=== PATIENT | male | born 1940 | race Caucasian/White ===

== ENCOUNTER 2020-05-31 08:25 | Inpatient (IN) | payer MEDICARE, OTHER, SELFPAY ==
[2020-05-31] VITALS (23 sets, daily range): BP systolic 107–172; BP diastolic 54–85; PULSE 59–94; RESP 13–18; TEMP 36.2–37.2; O2SAT 97–100; BMI 29.5
--- NOTE | 2020-05-31 08:28 | ECG_ITS ---
Measurements Intervals [place] Rate: 59 P: 46 GA: 219 QRS: -1 QRSD: 102 T: 71 QT: 421 QTc: 418 Interpretive Statements SINUS BRADYCARDIA WITH MARKED SINUS ARRHYTHMIA WITH FIRST DEGREE AV BLOCK ST ELEVATION IN ANT/INF LEADS- COSIDER ACUTE INJURY RECIPROCAL HIGH LATERAL ST DEPRESSION ABNORMAL ECG Electronically Signed On 05-31-2020 9:00:59 CDT by Saud Paulino D.O.
--- NOTE | 2020-05-31 08:31 | ED.CHESTPAIN ---
HPI - Chest Pain General Chief Complaint: Chest Pain Stated Complaint: STEMI Source: RN notes reviewed History of Present Illness HPI narrative: Patient presents emergency department from home for chest pain. Patient states that he was working outside today when he developed midsternal chest pain with radiation to his bilateral arms. The pain is described as a pressure. The patient states he does have a previous cardiac history with 3 stents placed last stent was placed in 2009. States he was seen by his print finishing worker in [facility] 3 days ago and had been on aspirin and Plavix and Plavix was stopped at that time. Patient states he was feeling fine prior to going out to work in the yard. He denies any fevers or chills nausea vomiting or any other symptoms. Patient did take 325 mg of aspirin this morning Related Data Home Medications Medication Instructions Recorded Confirmed clopidogrel 10/28/19 difluprednate [Durezol] 10/28/19 ezetimibe mg 10/28/19 fluticasone propionate INTRANASAL 10/28/19 isosorbide mononitrate mg PO 10/28/19 losartan 10/28/19 nitroglycerin mg 10/28/19 omeprazole 10/28/19 pantoprazole PO 10/28/19 simvastatin mg 10/28/19 tamsulosin mg PO 10/28/19 Allergies Allergy/AdvReac Type Severity Reaction Status Date / Time iodine Allergy Mild Rash Verified 10/28/19 10:47 Penicillins Allergy Unknown Rash Verified 10/28/19 10:47 Review of Systems Review of Systems: Narrative: Gen.: Denies fevers or chills ENT: Denies congestion Respiratory: Denies shortness of breath or cough CV: See HPI GI: Denies abdominal pain nausea, emesis or diarrhea Musculoskeletal: Denies back pain or muscle pain Neuro: Denies numbness, tingling, weakness or focal weakness Skin: Denies rash Except as documented, all other systems reviewed and negative [facility] Past Medical History Medical History (Updated 05/31/20 @ 08:37 by Jarod Day DO) Coronary artery disease Hypertension Social History Social History (Updated 05/31/20 @ 08:35 by Jarod Day DO) Smoking status: Never smoker Exam Narrative: Exam Narrative: APPEARANCE: No acute distress, nontoxic, resting in bed EYES: EOMI HEENT: Normocephalic, atraumatic, OMM RESPIRATORY: No respiratory distress Clear to auscultation bilaterally with no rhonchi wheezing or rales. CARDIOVASCULAR: Regular rate and rhythm without murmurs rubs or gallops. ABDOMINAL: Soft, nontender, nondistended, no rebound or guarding MUSCULOSKELETAl: Moves all extremities. No clubbing, cyanosis or edema. NEURO: Awake and alert. Following commands, speech normal, no focal deficits SKIN:: Warm, dry. No rashes lesions or abrasions PSYCHIATRIC: Normal affect/mood, Course Course Emergency Course: A code STEMI was called from the field Dr. Brenner in the emergency department to evaluate the patient. Will take to Bit Setter at this time request Brilinta 180 mg be given at this time Patient updated on plan for Bit Setter Vital Signs Vital signs: Vital Signs Temperature 98.2 F 05/31/20 08:23 Pulse Rate 68 05/31/20 08:23 Respiratory Rate 18 05/31/20 08:23 Blood Pressure 172/81 H 05/31/20 08:23 Pulse Oximetry 100 05/31/20 08:23 Temperature 98.2 F 05/31/20 08:23 Pulse Rate 68 05/31/20 08:23 Respiratory Rate 18 05/31/20 08:23 Blood Pressure 172/81 H 05/31/20 08:23 Pulse Oximetry 100 05/31/20 08:23 MDM - Chest Pain Lab Data Result diagrams: 05/31/20 08:34 05/31/20 08:33 ECG Data EKG #1: Interpretation: Sinus rhythm 60, AL is normal, left axis deviation, ST elevation in inferior leads consistent with STEMI Critical Care Time Critical Care Time Critical Care Time: Yes Total Critical Care Time: 35 Discharge Plan Discharge Clinical Impression: ST elevation (STEMI) myocardial infarction Patient Disposition: Still a Patient Condition: Stable Discharge Date/Time: 05/31/20 08:53
[2020-05-31] MEDS: TICAGRELOR 90 MG TABLET 180 MG (08:37)
--- NOTE | 2020-05-31 08:41 | WPDMODSED ---
Moderate Sedation Note-Pt Data Patient Data Diagnosis: 79-year-old man with coronary disease, previous myocardial infarction and PCI details unknown to us at this hospital presents with chest pain and ECG findings compatible with acute anterior injury Present Complaint: retrosternal chest pain radiating to the neck and left shoulder Procedure to be performed/Plan: emergency left heart catheterization / possible revascularization Allergies Allergy/AdvReac Type Severity Reaction Status Date / Time iodine Allergy Mild Rash Verified 10/28/19 10:47 Penicillins Allergy Unknown Rash Verified 10/28/19 10:47 Home Medications Medication Instructions Recorded Confirmed Type benzonatate [Tessalon Perles] 100 mg PO TID #30 cap 10/28/19 Rx clarithromycin 500 mg PO Q12H 10 Days #20 tablet 10/28/19 Rx clopidogrel 10/28/19 History difluprednate [Durezol] 10/28/19 History ezetimibe mg 10/28/19 History fluticasone propionate INTRANASAL 10/28/19 History isosorbide mononitrate mg PO 10/28/19 History losartan 10/28/19 History nitroglycerin mg 10/28/19 History omeprazole 10/28/19 History pantoprazole PO 10/28/19 History simvastatin mg 10/28/19 History tamsulosin mg PO 10/28/19 History Sedation/Anesthesia: No previous sedation/anesthesia problems (including family history). [facility] Past Medical History Medical History (Updated 05/31/20 @ 08:37 by Jarod Day DO) Coronary artery disease Hypertension Social History Social History (Updated 05/31/20 @ 08:35 by Jarod Day DO) Smoking status: Never smoker Mod Sed Physical Exam Physical Exam Pre Procedural Exam: Normal: Appearance, Neck, Throat, Airway, Heart Size, Heart Rate, Heart Rhythm, Neuro Exam and Extremities and Variation: Lungs ( breath sounds somewhat coarse) Hours since solid foods: 12 Hours since liquid intake: 12 Internal Medicine - PN: Obj Da Vital Signs Vital Signs: Vital Signs - 24 hr 05/31/20 08:23 Temperature 36.8 C Pulse Rate 68 Respiratory Rate 18 Blood Pressure 172/81 H Pulse Oximetry 100 ASA Classification/Sedation ASA Classification/Sedation Risks: Risks, benefits and alternatives explained and patient/family accepted plan for sedation. Patient re-evaluated immediately prior to sedation.
--- NOTE | 2020-05-31 09:14 | WPDCARDPROC ---
Cardiac Cath Procedure Note Date of procedure:: 05/31/20 Performing physician:: Redd Brenner MD Indication:: chest pain suspected acute DE in patient with known history of previous PCI details not available to me Brief clinical history:: this is a 79-year-old man who has known coronary artery disease previous myocardial infarction and previous interventions. The details of his care are unknown to me and provided elsewhere. He had the onset of chest pain this morning which was somewhat gradual all while he was doing yd work. His physicians discontinue to dual anti-platelet therapy recently as he has been doing well clinically. Electrocardiogram demonstrates sinus rhythm with T-wave abnormalities in the lateral precordial leads concerning for acute injury. In this setting emergency angiography has been recommended Procedure Procedure performed:: emergency left and right coronary angiogram left ventriculography Sedation/Medication given:: fentanyl 50 mg Versed 2 mg Solu-Medrol 125 mg Benadryl 50 mg case start 850 case end time 9:11 a.m. sedation provided by Allison rFias RN, trained observer Access site:: right femoral artery Estimated blood loss:: 15-20 cc Procedure note:: patient was brought to the clinical lab clerk in the emergent setting described above. The right femoral triangle was prepped and draped the usual fashion. Anesthesia was provided with 1% lidocaine infiltrated locally. Prior to starting the case because he was reporting iodine allergy he was given Solu-Medrol 125 mg intravenously and 50 mg of IV Benadryl. Patient is on aspirin chronically was given Brilinta 180 mg in the emergency room. The right femoral artery was punctured and a 6 [place] vascular sheath was placed using the modified Seldinger technique. The left coronary artery was engaged and injected in multiple projections using a 5 [place] FL4 catheter. The right coronary was engaged and injected in multiple projections using a 5 [place] JR4 catheter. Following completion and review of the coronary angiograms the left ventricle was studied using a 5 [place] angle pigtail catheter which was also used to document left-sided hemodynamics and pullback pressures across the aortic valve. The procedure was then terminated was taken to the holding area for manual sheath removal there were no signs of any procedural complications. Findings:: Hemodynamics: Central aortic pressure 152/74 left ventricle 158/6 end-diastolic pressure of 16. No gradient on pullback across the aortic valve. The left ventricle is normal in size all segments contract vigorously the ejection fraction is hyperdynamic and 75-80% by visual estimation no no regional wall motion abnormalities were identified the left main coronary artery is short but widely patent the LAD is a medium caliber artery extending down to the apex. There is visible previous stent material in the proximal segment of the LAD there is no apparent loss of lumen. There is NATALIE 3 flow throughout the LAD the remainder of the vessel has minimal luminal plaquing the circumflex is a large caliber artery giving rise to the marginal branches and a large posterior branch. The circumflex system has modest luminal irregularities. The large marginal branch has a visible previous stent device with no evidence of loss of lumen. The entire circumflex system has NATALIE 3 flow. Right coronary artery is a large caliber vessel dominant to the posterior circulation. There is visible stent material between the 1st and 2nd portions of the RCA. There is minimal atherosclerotic stenosis in the midportion of the RCA representing no more than about 20% stenosis. In the 3rd portion of the vessel there is an eccentric lesion that appears to be at the most 50-60%. There is NATALIE 3 flow in the vessel. Conclusion:: 1. Three-vessel coronary artery disease with previous percutaneous revascularization procedures in the LAD, OM and proxima
[2020-05-31 09:16] LABS: Basophils Percent Auto 0.8 % (0.2-1.2); Eosinophils Absolute Auto 0.2 K/mm3 (0-0.3); Eosinophils Percent Auto 3.8 % (0-4.4); Hematocrit 43.6 % (42.0-52.0); Hemoglobin 15.5 g/dL (14.0-18.0); Immature Granulocyte Absolute 0.02 K/mm3 (0.00-0.031); Immature Granulocyte Percent A 0.4 % (0-0.5); Immature Platelet Fraction Pct 5.4 % (0.9-11.2); Lymphocytes Absolute Auto 1.44 K/mm3 (0.9-3.2); Lymphocytes Percent Auto 27.2 % (18.3-44.2); Mean Corpuscular HGB Conc 35.6 g/dl (32-36); Mean Corpuscular Hemoglobin 30.9 pg (26-34); Mean Corpuscular Volume 86.9 fl (80-100); Monocytes Absolute Auto 0.5 K/mm3 (0.1-0.6); Monocytes Percent Auto 10.2 % (2.6-8.5); Neutrophils Absolute Auto 3.1 K/mm3 (1.3-6.7); Neutrophils Percent Auto 57.6 % (45.5-73.1); Red Blood Count 5.02 M/mm3 (4.6-6.20); Red Cell Distribution Width 12.6 % (11.5-14.5); White Blood Count 5.3 K/mm3 (4.5-10.0)
[2020-05-31 09:24] LABS: INR 0.9; Prothrombin Time 12.2 Seconds (11.1-14.7)
[2020-05-31 09:25] LABS: Platelet Estimate Adequate (Adequate)
[2020-05-31 09:26] LABS: Platelet Clumps Present; Poikilocytosis 1+ (NORMAL)
[2020-05-31 09:30] LABS: Alanine Aminotransferase 42 U/L (4-50); Albumin Level 4.7 g/dL (3.5-5.1); Alkaline Phosphatase 109 U/L (38-126); Aspartate Amino Transferase 39 U/L (17-59); Bilirubin,Total 0.8 mg/dL (0.2-1.3); Blood Urea Nitrogen 19 mg/dL (9-20); Calcium 9.8 mg/dL (8.4-10.2); Carbon Dioxide 26 mmol/L (22-30); Chloride 100 mmol/L (98-107); Cholesterol 157 mg/dL (0-200); Estimated Glomerular Filt Rate > 60; Glucose 160 mg/dL (75-110); HDL Direct 56 mg/dL; Potassium 3.7 mmol/L (3.4-5.0); Sodium 137 mmol/L (137-145); Triglycerides 146 mg/dL (<150)
[2020-05-31 09:31] LABS: Partial Thromboplastin Time < 20.0 SECONDS (22.3-36.8)
--- NOTE | 2020-05-31 09:38 | PM.IMHP ---
H&P: HPI History of Present Illness Chief complaint: STEMI Narrative: Reji Funez is a 79 year old male I am seeing in the emergency room with a history of chest pain that began a short time ago this morning while he was doing some yd work. The patient is known to have coronary artery disease and has had previous myocardial infarction and previous percutaneous revascularization. All of this care was provided elsewhere and I do not have any of those records available to me at the time of seeing this patient. He started to have retrosternal chest pain radiating to the left shoulder and came into his house to rest. 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 Because of these symptoms he took 1 of his isosorbide tablets his questioned as to his symptoms and indicated he looked pale and diaphoretic. 911 was called. Upon arrival to the hospital STEMI team was activated based on the appearance of his EKG. His electrocardiogram shows a sinus mechanism with some potentially acute looking T-wave changes in the lateral precordial leads and no severe ST-elevation however. In this setting and because of his symptoms and known history of disease plans are being made for emergency angiography. Review of Systems Review of Systems: ROS unobtainable: Yes unobtainable due to medical condition [facility] Past Medical History Medical History (Updated 05/31/20 @ 08:37 by Jarod Day DO) Coronary artery disease Hypertension Social History Social History (Updated 05/31/20 @ 08:35 by Jarod Day DO) Smoking status: Never smoker Meds Home Medications and Allergies Home Medications Medication Instructions Recorded Confirmed Type benzonatate [Tessalon Perles] 100 mg PO TID #30 cap 10/28/19 Rx clarithromycin 500 mg PO Q12H 10 Days #20 tablet 10/28/19 Rx clopidogrel 10/28/19 History difluprednate [Durezol] 10/28/19 History ezetimibe mg 10/28/19 History fluticasone propionate INTRANASAL 10/28/19 History isosorbide mononitrate mg PO 10/28/19 History losartan 10/28/19 History nitroglycerin mg 10/28/19 History omeprazole 10/28/19 History pantoprazole PO 10/28/19 History simvastatin mg 12/12/19 History tamsulosin mg PO 10/28/19 History Allergies Allergy/AdvReac Type Severity Reaction Status Date / Time iodine Allergy Mild Rash Verified 10/28/19 10:47 Penicillins Allergy Unknown Rash Verified 10/28/19 10:47 Vital Signs Vital Signs - 24 hr 05/31/20 08:23 Temperature 36.8 C Pulse Rate 68 Respiratory Rate 18 Blood Pressure 172/81 H Pulse Oximetry 100 Exam Const: General: in distress and uncomfortable Other: White male appearing his stated age in mild to moderate distress with chest pain he is also rather anxious. HENMT: Mouth: Yes dry mucous membranes Eyes: General: appearance normal, both eyes and all related structures Neck: Neck: supple and no JVD Other: Carotid pulses are normal bilaterally and are free of bruits Resp: Effort & Inspection: normal respiratory effort Other: few expiratory rhonchi are noted centrally. No pulmonary rales or wheezing Cardio: Rate: regular rate Rhythm: regular rhythm Other: S4 gallop is evident GI: GI Palp: Yes Soft to palpation Auscultation: normal bowel sounds Skin: General skin exam: normal color Neuro: Cognition (Neuro): normal cognition Extrem: General: normal to inspection H&P: Results Labs Labs: Short CBC 05/31/20 Range/Units 08:34 WBC 5.3 (4.5-10.0) K/mm3 Hgb 15.5 (14.0-18.0) g/dL Hct 43.6 (42.0-52.0) % Plt Count [facility] 05/31/20 08:33 Sodium 137 Potassium 3.7 Chloride 100 Carbon Dioxide 26 BUN 19 Creatinine 1.00 Glucose 160 H Calcium 9.8 Liver Function 05/31/20 Range/Units 08:33 Total Bilirubin 0.8 (0.2-1.3) mg/dL AST 39 (17-59) U/L ALT 42 (4-50) U/L Alkaline Phosphatase 109
[2020-05-31 09:40] LABS: LDL Cholesterol Direct 76 mg/dL
[2020-05-31 09:43] LABS: Troponin I < 0.012 ng/mL (0.000-0.034)
--- NOTE | 2020-05-31 12:31 | SUR.PHASEII ---
1220- Patient transferred to IMU room 202. Groin soft and non tender, no evidence of hematoma noted, gauze and transparent dressing C/D/I with no drainage noted. Strong right pedal pulse noted. Report given to MELANIA Rider at bedside, who also inspected groin and pulse upon arrival. Patient in no distress and no pain at time of transfer.
[2020-05-31] MEDS: SODIUM CHLORIDE 0.9% IV 1,000 ML 125 ML IV CONT (12:39)
[2020-05-31 13:28] LABS: Troponin I 0.106 ng/mL (0.000-0.034)
[2020-05-31 15:11] LABS: Troponin I 0.396 ng/mL (0.000-0.034)
--- NOTE | 2020-05-31 16:02 | PC.NURSE ---
This patient, Reji Funez, was admitted to IMU Room 202-. Patient/family oriented to hospital policies and general routines including ID bracelet, bed and alarms, visiting hours, pain management, procedures, bathroom and other care routines, personal items, smoking policy, room service/diet, and visiting hours. Valuables list has been completed. Information on how to activate the Rapid Response Team has been discussed. Patient/Family are encouraged to report perceived risks to care and to ask questions if they do not understand what they are told or what they should do.
[2020-05-31] MEDS: LORATADINE 10 MG TABLET PO (21:03)
[2020-05-31] MEDS: SIMVASTATIN 20 MG TABLET PO (21:03)
[2020-05-31] MEDS: LOSARTAN POTASSIUM 100 MG TABLET PO (21:03)
[2020-05-31] MEDS: amLODIPine BESYLATE 5 MG TABLET PO (21:03)
[2020-05-31] MEDS: EZETIMIBE 10 MG TABLET PO (21:03)
[2020-06-01] VITALS (7 sets, daily range): BP systolic 128–142; BP diastolic 59–70; PULSE 50–63; RESP 14–18; TEMP 36.4–36.6; O2SAT 99–100
[2020-06-01 05:16] LABS: Blood Urea Nitrogen 19 mg/dL (9-20); Carbon Dioxide 24 mmol/L (22-30); Chloride 102 mmol/L (98-107); Estimated CRCL calculation 58 ml/min; Estimated Glomerular Filt Rate > 60; Glucose 150 mg/dL (75-110); Potassium 3.9 mmol/L (3.4-5.0); Sodium 136 mmol/L (137-145)
--- NOTE | 2020-06-01 08:00 | ECG_ITS ---
Measurements Intervals [place] Rate: 58 P: 62 OR: 225 QRS: 5 QRSD: 94 T: 68 QT: 419 QTc: 413 Interpretive Statements SINUS BRADYCARDIA WITH FIRST DEGREE AV BLOCK BORDERLINE ST ABNORMALITY- HIGH LATERAL LEADS BASELINE ARTIFACT- II, III, AVF ABNORMAL ECG Electronically Signed On 06-01-2020 11:53:04 CDT by Saud Paulino D.O.
[2020-06-01] MEDS: PANTOPRAZOLE 40 MG TABLET PO (08:28)
[2020-06-01] MEDS: TAMSULOSIN HCL 0.4 MG CAPSULE PO (08:28)
[2020-06-01] MEDS: ASPIRIN 81 MG ENTERIC TABLET PO (08:28)
[2020-06-01] MEDS: CLOPIDOGREL BISULFATE 300 MG TABLET PO (12:17)
--- NOTE | 2020-06-01 12:46 | PM.DS ---
DS: Admitting Diagnosis Admitting Diagnosis Admitting Diagnosis: STEMI DS: Discharge Diagnosis Discharge Diagnosis (1) Coronary artery disease: Code(s): I25.10 - Atherosclerotic heart disease of [place] coronary artery without angina pectoris Status: Acute Assessment and Plan: No acute occlusion found on coronary angiography. No ST-elevation myocardial infarction (STEMI ruled out). Minimal troponin elevation. Chest pain-free. Continue aspirin, simvastatin, ezetimibe, losartan and amlodipine. Restart clopidogrel. Will load with 300 mg today. Continue clopidogrel 75 mg daily. Will not restart isosorbide mononitrate at this time. Will re-evaluate in the office whether this drug is needed. (2) Hypertension: Code(s): I10 - Essential (primary) hypertension Status: Acute Assessment and Plan: Blood pressure is reasonably controlled. Recently started on chlorthalidone for hypertension. Renal function within normal limits. Will restart chlorthalidone on Friday. Medications as above. DS: Summary Hospital Course Reason for hospitalization: Chest pain Hospital Course: 79-year-old male with a history of coronary artery disease with previous percutaneous revascularization that presented with chest pain that began while he was doing some yard work. Upon arrival to the hospital STEMI team was activated based on the appearance of his EKG. His electrocardiogram showed a sinus mechanism with some potentially acute looking T-wave changes in the lateral precordial leads and no severe ST-elevation however. Cardiac catheterization 05/31/2020 finding significant for: Left main coronary artery is short but widely patent. The LAD is a medium caliber artery extending down to the apex. There is visible previous stent material in the proximal segment of the LAD there is no apparent loss of lumen. There is NATALIE 3 flow throughout the LAD the remainder of the vessel has minimal luminal plaquing. The circumflex is a large caliber artery giving rise to the marginal branches and a large posterior branch. The circumflex system has modest luminal irregularities. The large marginal branch has a visible previous stent device with no evidence of loss of lumen. The entire circumflex system has NATALIE 3 flow. The right coronary artery is a large caliber vessel dominant to the posterior circulation. There is visible stent material between the 1st and 2nd portions of the RCA. There is minimal atherosclerotic stenosis in the midportion of the RCA representing no more than about 20% stenosis. In the 3rd portion of the vessel there is an eccentric lesion that appears to be at the most 50-60%. There is NATALIE 3 flow in the vessel. The left ventricle is normal in size all segments contract vigorously the ejection fraction is hyperdynamic and 75-80% by visual estimation no regional wall motion abnormalities were identified. No intervention was necessary. STEMI ruled out. He became pain-free around 10:30 yesterday morning. He was monitored overnight. No chest discomfort or shortness of breath. He does have lightheadedness when he first gets up or gets up too quickly. No arrhythmias on the monitor. Right groin site was without swelling or bleeding. No femoral bruit. Distal pulses intact. He was loaded with clopidogrel 300 mg and will be restarted on clopidogrel 75 mg daily. Will not restart isosorbide mononitrate at this time. He is to hold his chlorthalidone until Friday. Follow-up was provided in our office [place] was [place] home in stable and pain-free condition. Status at Discharge Functional status at discharge: independent ambulation Overall status at discharge: patient is back to baseline Time Spent with Patient Time attestation: Total time spent providing and/or coordinating discharge services: 30
== END 2020-06-01 13:15 | disposition home or self-care (01) | DRG 287 ==
LOC: ANHED 08:37 → ANHICU 08:41 → ANHIMU 09:28
PROVIDERS: Nurse Practitioner Adult Health; Admitting Provider Specialist; Emergency Provider Emergency Medicine; Visit Provider Specialist
PROC: 4A023N7 Measurement of Cardiac Sampling and Pressure, Left Heart, Percutaneous Approach (ICD-10-PCS; CPT 93452; principal; 2020-05-31 08:35)
DX: I25.10 Atherosclerotic heart disease of native coronary artery without angina pectoris (principal); I10 Essential (primary) hypertension; I25.2 Old myocardial infarction; Z79.899 Other long term (current) drug therapy; Z88.0 Allergy status to penicillin; Z88.8 Allergy status to other drugs, medicaments and biological substances; Z95.5 Presence of coronary angioplasty implant and graft
CPT/HCPCS: 36415; 80048; 80053; 80061; 84484; 85025; 85055; 85610; 85730; 86850; 86900; 86901; 93005; 93458; 99291; A9270; C1887; C1894; J1200; J1644; J2250; J2930; J3010; J7030; J7040

== ENCOUNTER 2021-07-27 08:31 | Outpatient (CLI) | payer MEDICARE, OTHER, SELFPAY ==
--- NOTE | ~2021-07-27 | CT_ITS ---
EXAMINATION: CTA chest DATE: 07/27/2021 09:01 INDICATION: Thoracic aortic aneurysm TECHNIQUE: Computed tomographic angiography (CTA) of the chest was performed without and with 100 mL Omnipque-350 intravenous contrast. Maximum intensity projection 3D-reconstructions of the aorta and o ther arteries were constructed by the technologist on a separate workstation. The dose-length product (DLP) was 1110.16 mGy-cm. Automated exposure control and iterative reconstruction technique were emp loyed. COMPARISON: None. FINDINGS: The ascending aorta measures 4.4 x 4.3 cm at the level of the main pulmonary artery and 3.6 x 3.2 cm at the sinuses of Valsalva. There is no dissection. Cardiomegaly is noted. There are no pat hologically enlarged thoracic lymph nodes. The lungs are free of focal airspace opacities. There is d ependent atelectasis. Calcified pulmonary nodules and calcified hilar and mediastinal lymph nodes are consistent with old granulomatous disease. The liver is diffusely low in attenuation when compared w ith the spleen, consistent with hepatic steatosis. Suture anchors are noted in the right humeral head . There is moderate thoracic spondylosis. IMPRESSION: 1. Dilated thoracic aorta measuring up to 4.4 cm. No dissection. Reviewed, dictated and finalized at location B.
[2021-07-27 08:55] LABS: Estimated Glomerular Filt Rate > 60
== END 2021-07-27 08:32 | disposition home or self-care (01) ==
LOC: ANHIMG 08:35
PROVIDERS: Visit Provider Specialist
DX: I71.2 Thoracic aortic aneurysm, without rupture (principal)
CPT/HCPCS: 71275; Q9967

== ENCOUNTER 2022-08-02 12:52 | Outpatient (CLI) | payer MEDICARE, OTHER, SELFPAY ==
--- NOTE | ~2022-08-02 | CT_ITS ---
EXAMINATION: CTA chest DATE: 08/02/2022 13:12 INDICATION: Thoracic aortic aneurysm without rupture TECHNIQUE: Computed tomographic angiography (CTA) of the chest was performed with 100 mL Omnipque-350 intravenous contrast. Maximum intensity projection 3D-reconstructions of the aorta and other arterie s were constructed by the technologist on a separate workstation. The dose-length product (DLP) was 6 52.44 mGy-cm. Automated exposure control and iterative reconstruction technique were employed. COMPARISON: 07/27/2021 FINDINGS: The ascending aorta measures 4.3 x 4.2 cm at the level of the main pulmonary artery and 3.5 x 2.9 cm at the level of the sinuses of Valsalva. There is no dissection of the thoracic aorta. Ther e are no pathologically enlarged thoracic lymph nodes. Cardiomegaly is noted. There is dependent atel ectasis. Calcified pulmonary nodules and calcified hilar and mediastinal lymph nodes are consistent w ith old granulomatous disease. No pleural effusion or pneumothorax. There is moderate thoracic spond ylosis. IMPRESSION: 1. Stable dilation of the thoracic aorta measuring up to 4.3 cm. No dissection. Reviewed, dictated and finalized at location B.
[2022-08-02 13:09] LABS: Estimated Glomerular Filt Rate > 60
== END 2022-08-02 12:53 | disposition home or self-care (01) ==
PROVIDERS: Visit Provider Specialist
DX: I71.2 Thoracic aortic aneurysm, without rupture (principal)
CPT/HCPCS: 71275; Q9967

== ENCOUNTER 2023-05-22 11:43 | Observation (INO) | payer MEDICARE, OTHER, SELFPAY ==
[2023-05-22] VITALS (22 sets, daily range): BP systolic 103–168; BP diastolic 58–87; PULSE 46–73; RESP 12–19; TEMP 36.3–37.3; O2SAT 98–100; BMI 34.2
--- NOTE | ~2023-05-22 | XR_ITS ---
Clinical Indication: Chest pain PA and lateral views of the chest: Comparison: 04/18/2019 Findings: The lungs are clear, without evidence of focal consolidation or pleural effusion. Cardiome diastinal silhouette is stable. Bones and soft tissues are unremarkable. Impression: Clear lungs. Reviewed, dictated and finalized at location . Impression: Clear lungs.
--- NOTE | 2023-05-22 11:47 | ECG_ITS ---
Measurements Intervals [place] Rate: 53 P: 83 SC: 224 QRS: 4 QRSD: 92 T: 69 QT: 413 QTc: 391 Interpretive Statements SINUS BRADYCARDIA WITH SINUS ARRHYTHMIA WITH FIRST DEGREE AV BLOCK BASELINE ARTIFACT- I, II, III, AVL, V2 BORDERLINE ECG COMPARED TO ECG 06/01/2020 09:03:48 SINUS ARRHYTHMIA NOW PRESENT Electronically Signed On 05-22-2023 12:01:41 CDT by Saud Paulino D.O.
[2023-05-22 12:02] LABS: Basophils Absolute Auto 0.1 K/mm3 (0.0-0.1); Basophils Percent Auto 0.7 % (0.2-1.2); Eosinophils Absolute Auto 0.3 K/mm3 (0-0.3); Hematocrit 40.6 % (42.0-52.0); Hemoglobin 13.9 g/dL (14.0-18.0); Immature Granulocyte Absolute 0.04 K/mm3 (0.00-0.031); Immature Granulocyte Percent A 0.6 % (0-0.5); Lymphocytes Absolute Auto 1.37 K/mm3 (0.9-3.2); Lymphocytes Percent Auto 20.3 % (18.3-44.2); Mean Corpuscular HGB Conc 34.2 g/dl (32-36); Mean Corpuscular Hemoglobin 30.9 pg (26-34); Mean Corpuscular Volume 90.2 fl (80-100); Mean Platelet Volume 10.1 fl (7.4-10.4); Monocytes Absolute Auto 0.7 K/mm3 (0.1-0.6); Monocytes Percent Auto 10.5 % (2.6-8.5); Neutrophils Absolute Auto 4.3 K/mm3 (1.3-6.7); Neutrophils Percent Auto 62.9 % (45.5-73.1); Platelet Count Result 193 k/mm3 (150-375); Red Cell Distribution Width 12.7 % (11.5-14.5); White Blood Count 6.8 K/mm3 (4.5-10.0)
--- NOTE | 2023-05-22 12:07 | ECG_ITS ---
Measurements Intervals [place] Rate: 48 P: -19 RI: 182 QRS: -2 QRSD: 86 T: 76 QT: 430 QTc: 387 Interpretive Statements SINUS BRADYCARDIA BORDERLINE ST-T WAVE ABNORMALITY- HIGH LATERAL LEADS BASELINE ARTIFACT- III, AVL ABNORMAL ECG COMPARED TO ECG 05/22/2023 11:44:23 HEART RATE HAS DECREASED Electronically Signed On 05-22-2023 12:46:02 CDT by Saud Paulino D.O.
[2023-05-22 12:12] LABS: Alanine Aminotransferase 46 U/L (6-50); Alkaline Phosphatase 90 U/L (38-126); Anion Gap 5 mmol/L (8-16); Aspartate Amino Transferase 41 U/L (17-59); Bilirubin,Total 0.6 mg/dL (0.2-1.3); Blood Urea Nitrogen 15 mg/dL (9-20); Calcium 8.9 mg/dL (8.4-10.2); Carbon Dioxide 30 mmol/L (22-30); Chloride 101 mmol/L (98-107); Estimated CRCL calculation 59 ml/min; Estimated Glomerular Filt Rate > 60; Glucose 146 mg/dL (65-110); Lipase 65 U/L (23-300); Potassium 3.7 mmol/L (3.4-5.0); Sodium 136 mmol/L (137-145)
[2023-05-22 12:13] LABS: INR 0.9; Partial Thromboplastin Time 24.3 SECONDS (22.3-36.8); Prothrombin Time 12.7 Seconds (11.1-14.7)
[2023-05-22 12:22] LABS: Troponin I < 0.012 ng/mL (0.000-0.034)
--- NOTE | 2023-05-22 12:34 | ED.CHESTPAIN ---
HPI - Chest Pain General Chief Complaint: Chest Pain Stated Complaint: chest pain Time Seen by Provider: 05/22/23 12:04 Source: patient, RN notes reviewed and old records reviewed Mode of arrival: ambulatory Limitations: no limitations History of Present Illness HPI narrative: This is an 82 year old male with history of CAD, stent who presents for evaluation of chest pressure. Patient states he developed chest pressure while mowing the lawn. He states he went inside to rest but the pressure worsened and it didn't resolve. He took nitro glycerin. EMS was called and he was given nitro x3 and aspirin 324mg. Patient had associated diaphoresis and dizziness. Patient states his pain radiated to back of his arms. He denies any pain or pressure right now. His ivf embryologist Elidia. He had cardiac catheterization in 2019 with patent stents . Patient states he does have chest pressure intermittent with exertion but it normal resolves with rest. Related Data Home Medications Medication Instructions Recorded Confirmed ezetimibe 10 mg tablet 10 mg PO HS 10/28/19 05/22/23 fluticasone propionate 50 1 spray intranasal DAILY PRN 10/28/19 05/22/23 mcg/actuation nasal Congestion spray,suspension losartan 50 mg tablet 100 mg PO DAILY 10/28/19 05/22/23 nitroglycerin 0.4 mg sublingual 0.4 mg sublingual DIRECTED PRN 10/28/19 05/22/23 tablet Chest Pain pantoprazole 40 mg tablet,delayed 40 mg PO DAILY 10/28/19 05/22/23 release simvastatin 20 mg tablet 20 mg PO HS 10/28/19 05/22/23 acetaminophen 500 mg tablet 1,000 mg PO Q6H PRN Pain (Scale 05/31/20 05/22/23 Score 1-3) amlodipine 5 mg tablet 5 mg PO DAILY 05/31/20 05/22/23 aspirin 81 mg tablet,delayed 81 mg PO DAILY 05/31/20 05/22/23 release (Adult Low Dose Aspirin) loratadine 10 mg tablet (Allergy 10 mg PO HS 05/31/20 05/22/23 Relief (loratadine)) meloxicam 15 mg tablet 15 mg PO HS 05/31/20 05/22/23 hydrochlorothiazide 12.5 mg tablet 12.5 mg PO DAILY 05/22/23 05/22/23 metoprolol succinate 25 mg 12.5 mg PO DAILY 05/22/23 05/22/23 tablet,extended release 24 hr Allergies Allergy/AdvReac Type Severity Reaction Status Date / Time iodine Allergy Mild Rash Verified 10/28/19 10:47 Penicillins Allergy Unknown Rash Verified 10/28/19 10:47 Review of Systems Constitutional: Constitutional: Denies weakness Cardiovascular: Cardiovascular: Reports chest pain, Denies syncope, Denies rapid heart rate, Denies irregular heart rhythm, Denies leg edema, Reports radiating jaw, neck or arm pain and Denies dyspnea Respiratory: Respiratory: Denies chest congestion, Denies hemoptysis, Denies excessive phlegm production and Denies dyspnea Gastrointestinal: Gastrointestinal: Denies abdominal pain, Denies hematochezia, Denies diarrhea and Denies vomiting Genitourinary: Genitourinary: Denies hematuria, Denies dysuria, Denies penile discharge and Denies testicular pain Musculoskeletal: Musculoskeletal: Denies joint swelling, Denies loss of height and Denies muscle weakness Neurologic: Denies syncope, Denies focal weakness and Denies weakness [facility] Past Medical History Medical History (Updated 05/22/23 @ 15:27 by Matthew Castro MD) BPH (benign prostatic hyperplasia) Coronary artery disease Hyperlipidemia associated with type 2 diabetes mellitus Hypertension Pre-diabetes Surgical History Surgical History (Updated 05/22/23 @ 16:47 by Marly Joseph NP) H/O inguinal hernia repair H/O rotator cuff surgery History of cataract surgery History of coronary artery stent placement 3 stent at mo bap with one stent at one time and two at the next time revascularization procedure in the LAD, OM and proximal RCA History of percutaneous coronary intervention S/P tonsillectomy S/P TURP Family History Family History (Updated 05/22/23 @ 16:48 by Marly Joseph NP) Father Acute myocardial infarction Heart disease Cerebrovascular accident Sibling Heart disease Mother Scleroderma
--- NOTE | 2023-05-22 13:26 | PM.IMHP ---
H&P: HPI History of Present Illness Date/Time: 05/22/23 13:26 Chief Complaint: Chest pain Narrative: This is the 82-year-old male patient who has a history of coronary artery disease with 3 stents and hypertension. The patient sees Dr. Pruitt outpatient. The patient had his last cardiac catheterization from May [id number] per Dr. Herndon. It was noted that the patient had a previous percutaneous revascularization procedure in the LAD, OM and proximal RCA which all were reported as pain during that catheterization. However today the patient was outside planning trees this morning when he developed chest pain. The chest pressure continued to become worse and did not resolve after nitroglycerin. EMS was called and the patient took nitro x3 an aspirin. Patient also had diaphoresis and dizziness. Radiation of pain to neck and arm. His chest pressure is now relieved. His H&H is 13.9 and 40.6. Sodium 136. Cardiac enzymes negative x2. Cardiology has been consulted. Chest x-ray was read as clear lungs. The patient is being admitted to observation status on the date of service of 05/22/2023. Review of Systems Review of Systems: All systems reviewed & are unremarkable except as noted in HPI and below Constitutional: Constitutional: Reports as per HPI and Reports no additional constitutional complaints Eyes: Eyes: Reports as per HPI and Reports no additional eye complaints ENT: Reports system reviewed and no additional complaints, except as documented and Reports Normal hearing present Cardiovascular: Cardiovascular: Reports no additional cardiovascular complaints Respiratory: Respiratory: Reports no additional respiratory complaints and Reports no additional respiratory complaints Gastrointestinal: Gastrointestinal: Reports as per HPI and Reports no additional gastrointestinal complaints Musculoskeletal: Musculoskeletal: Reports no additional musculoskeletal complaints Integumentary/Breasts: Skin/Breast: Reports system reviewed and no additional complaints, except as docu and Reports as per HPI Neurologic: Reports system reviewed and no additional complaints, except as documented, Reports as per HPI and Reports Normal hearing present Psychiatric: Psychiatric: Reports no additional psychiatric complaints and Reports as per HPI Endocrine: Endocrine: Reports no additional endocrine complaints Hematologic/Lymphatic: Hematologic/Lymphatic: Reports no additional hematologic/lymphatic complaints Allergic/Immunologic: Allergic/Immunologic: Reports no additional allergic/immunologic complaints [facility] Past Medical History Medical History (Updated 05/22/23 @ 15:27 by Matthew Castro MD) BPH (benign prostatic hyperplasia) Coronary artery disease Hyperlipidemia associated with type 2 diabetes mellitus Hypertension Pre-diabetes Surgical History Surgical History (Updated 05/22/23 @ 16:47 by Marly Joseph NP) H/O inguinal hernia repair H/O rotator cuff surgery History of cataract surgery History of coronary artery stent placement 3 stent at mo bap with one stent at one time and two at the next time revascularization procedure in the LAD, OM and proximal RCA History of percutaneous coronary intervention S/P tonsillectomy S/P TURP Family History Family History (Updated 05/22/23 @ 16:48 by Marly Joseph NP) Father Acute myocardial infarction Heart disease Cerebrovascular accident Sibling Heart disease Mother Scleroderma Social History Social History (Updated 05/22/23 @ 16:49 by Marly Joseph NP) Social History: He is and has 4 children. He is retired from the [employer]. He is a former smoker. Code status full code Smoking packs per day: 0.5 Smoking cigarettes per day: 10.0 Years smoked: 50 Smoking pack-years: 25.00 Smoking status: Former smoker Tobacco type: cigarettes Alcohol intake: never Drinks per week: 10 Substance use: never Lack of Transportation: No [place]
[2023-05-22] MEDS: ENOXAPARIN 100 MG/ML SYRINGE SUB-Q (13:34)
--- NOTE | 2023-05-22 14:11 | ADMGEN ---
This patient, Reji Funez, was admitted to IMU Room 209-01. Patient/family oriented to hospital policies and general routines including ID bracelet, bed and alarms, visiting hours, pain management, procedures, bathroom and other care routines, personal items, smoking policy, room service/diet, and visiting hours. Information on how to activate the Rapid Response Team has been discussed. Patient/Family are encouraged to report perceived risks to care and to ask questions if they do not understand what they are told or what they should do.
--- NOTE | 2023-05-22 15:15 | PM.CNCAR ---
Assessment and Plan Assessment and plan (1) Chest pain: Code(s): R07.9 - Chest pain, unspecified Status: Acute Assessment and Plan: Currently chest pain free. Initial troponin negative. EKG x 2 without ischemic changes. Continue to trend troponins. If troponins remain negative, will plan on nuclear stress test in the AM. If troponins become positive, then will plan for cardiac catheterization. Patient to be NPO at midnight. Continue ASA, Plavix, statin. (2) Coronary artery disease: Code(s): I25.10 - Atherosclerotic heart disease of [place] coronary artery without angina pectoris Status: Acute Assessment and Plan: Cardiac catheterization in 2020 showed moderate distal RCA coronary artery disease, patent LAD stent, patent OM stent, patent proximal-mid RCA stent Continue ASA, Plavix, statin. (3) Hypertension: Code(s): I10 - Essential (primary) hypertension Status: Acute Assessment and Plan: Stable, continue home meds. History of Present Illness History of Present Illness Consult date/time: 05/22/23 15:15 Requesting physician: Amanda Lund MD Consult reason: chest pain Reason For Visit: unstable angina Narrative: We are consulted for chest pain. This is an 82-year-old male with coronary artery disease s/p prior PCI, hypertension who presented with chest pain. Patient states he was out planting in his yard this morning. Was sweating from the heat but otherwise felt okay. After he finished working, he was putting his stuff away when he felt bad overall. Then developed pain on the sides of both his arms, chest pain, back pain. Patient states he took NTG and ASA x 3. Had some improvement, but recurrence in symptoms. Took another NTG again with improvement but then recurrence in symptoms. Patient then took a third NTG. Patient states his symptoms completely resolved around 1PM or shortly beforehand. His symptoms began around 10AM or so. Patient reports that he had similar symptoms back in 2019 when he was admitted here for chest pain. Cardiac catheterization done by Dr. Brenner at that time showed moderate non-obstructive coronary artery disease. Patient states that prior to this morning, the last time he had pain was back in 2020 at the time of the cath. He has otherwise done well since then. Takes ASA and Plavix daily at home. He feels completely fine now. Initial troponin negative. Initial EKG with sinus bradycardia with sinus arrhythmia. No ischemic changes. Repeat EKG without significant changes. Review of Systems Review of Systems: All systems reviewed & are unremarkable except as noted in HPI and below (HPI) REPLACED BY [facility] Past Medical History Medical History BPH (benign prostatic hyperplasia) Coronary artery disease Hyperlipidemia associated with type 2 diabetes mellitus Hypertension Pre-diabetes Surgical History Surgical History H/O rotator cuff surgery History of cataract surgery History of coronary artery stent placement 3 stent at [facility] with one stent at one time and two at the next time History of percutaneous coronary intervention S/P tonsillectomy S/P TURP Family History Family History Father Acute myocardial infarction Heart disease Sibling Heart disease Mother Scleroderma Social History Social History Social History: 4c Smoking packs per day: 0.5 Smoking cigarettes per day: 10.0 Years smoked: 50 Smoking pack-years: 25.00 Smoking status: Former smoker Tobacco type: cigarettes Alcohol intake: never Drinks per week: 10 Substance use: never Lack of Transportation: No Lack of Food: Never True Current Housing: I Have Housing Concerned About Future Housing: No Difficulty Paying Gas/Electric Bills: YES Difficulty P
[2023-05-22 16:49] LABS: Glucose Point of Care 170 mg/dl (65-105)
[2023-05-22 18:45] LABS: Troponin I 0.066 ng/mL (0.000-0.034)
[2023-05-22 19:50] LABS: Glucose Point of Care 162 mg/dl (65-105)
[2023-05-22] MEDS: EZETIMIBE 10 MG TABLET PO (21:24)
[2023-05-22] MEDS: SIMVASTATIN 20 MG TABLET PO (21:24)
[2023-05-23] VITALS (27 sets, daily range): BP systolic 112–155; BP diastolic 41–79; PULSE 48–85; RESP 14–20; TEMP 36.5–37.6; O2SAT 95–100
[2023-05-23 04:44] LABS: Basophils Absolute Auto 0.1 K/mm3 (0.0-0.1); Basophils Percent Auto 0.8 % (0.2-1.2); Eosinophils Absolute Auto 0.4 K/mm3 (0-0.3); Eosinophils Percent Auto 6.2 % (0-4.4); Hematocrit 41.3 % (42.0-52.0); Immature Granulocyte Absolute 0.04 K/mm3 (0.00-0.031); Immature Granulocyte Percent A 0.6 % (0-0.5); Lymphocytes Absolute Auto 1.84 K/mm3 (0.9-3.2); Lymphocytes Percent Auto 28.4 % (18.3-44.2); Mean Corpuscular HGB Conc 33.9 g/dl (32-36); Mean Corpuscular Hemoglobin 30.6 pg (26-34); Mean Corpuscular Volume 90.2 fl (80-100); Mean Platelet Volume 10.8 fl (7.4-10.4); Monocytes Absolute Auto 0.7 K/mm3 (0.1-0.6); Monocytes Percent Auto 10.5 % (2.6-8.5); Neutrophils Absolute Auto 3.5 K/mm3 (1.3-6.7); Neutrophils Percent Auto 53.5 % (45.5-73.1); Platelet Count Result 207 k/mm3 (150-375); Red Blood Count 4.58 M/mm3 (4.6-6.20); Red Cell Distribution Width 12.7 % (11.5-14.5); White Blood Count 6.5 K/mm3 (4.5-10.0)
[2023-05-23 04:53] LABS: Lactic Acid Reflex 1.5 mmol/L (0.7-2.0)
[2023-05-23 05:37] LABS: Anion Gap 8 mmol/L (8-16); Blood Urea Nitrogen 17 mg/dL (9-20); Calcium 9.1 mg/dL (8.4-10.2); Carbon Dioxide 27 mmol/L (22-30); Chloride 103 mmol/L (98-107); Estimated CRCL calculation 55 ml/min; Estimated Glomerular Filt Rate > 60; Glucose 125 mg/dL (65-110); Potassium 3.7 mmol/L (3.4-5.0); Sodium 138 mmol/L (137-145)
--- NOTE | 2023-05-23 05:59 | ECG_ITS ---
Measurements Intervals [place] Rate: 47 P: 13 DE: 219 QRS: 3 QRSD: 94 T: 70 QT: 464 QTc: 414 Interpretive Statements SINUS BRADYCARDIA WITH FIRST DEGREE AV BLOCK ABNORMAL ECG COMPARED TO ECG 05/22/2023 12:17:32 FIRST DEGREE AV BLOCK NOW PRESENT Electronically Signed On 05-23-2023 6:54:17 CDT by Saud Paulino D.O.
[2023-05-23 06:21] LABS: Hemoglobin A1C 6.2 % (<5.7)
[2023-05-23 06:28] LABS: Troponin I 0.097 ng/mL (0.000-0.034)
[2023-05-23 07:53] LABS: Glucose Point of Care 150 mg/dl (65-105)
--- NOTE | 2023-05-23 08:10 | PC.NURSE ---
Night RN received critical troponin. Exchange called with results with no return called received. This RN called MD on pt's case at 0800 with new orders received.
[2023-05-23] MEDS: METOPROLOL SUCCINATE EXT REL 12.5 MG TABCR PO (08:45)
[2023-05-23] MEDS: CLOPIDOGREL BISULFATE 75 MG TABLET PO (08:45)
[2023-05-23] MEDS: methylPREDNISolone SOD SUCC 40 MG VIAL IV PUSH ×2 (08:45→12:26)
[2023-05-23] MEDS: amLODIPine BESYLATE 5 MG TABLET PO (08:48)
[2023-05-23] MEDS: LOSARTAN POTASSIUM 50 MG TABLET 100 MG PO (08:48)
[2023-05-23] MEDS: PANTOPRAZOLE 40 MG TABLET PO (08:48)
[2023-05-23] MEDS: ASPIRIN 81 MG ENTERIC TABLET PO (08:53)
[2023-05-23 10:23] LABS: Troponin I 0.065 ng/mL (0.000-0.034)
[2023-05-23 12:15] LABS: Glucose Point of Care 143 mg/dl (65-105)
--- NOTE | 2023-05-23 12:50 | PM.IMPN ---
Progress Note: A&P Assessment and Plan (1) Chest pain: Code(s): R07.9 - Chest pain, unspecified Status: Acute Assessment and Plan: Patient presents with chest pain on exertion that feels very similar to prior ischemic chest pain. Chest x-ray clear. Troponins peaked at 0.097. EKG showed sinus bradycardia with sinus arrhythmia and first-degree AV block but overall no significant change from prior. Patient is on Plavix, aspirin, Toprol, Cozaar and Zocor which have been continued. Patient's last cardiac catheterization was a 2019 and all 3 stents were clear. The patient was given subcu Lovenox and admitted to the IMU. Cardiology has been consulted. Plan for left heart catheterization later today. (2) Pre-diabetes: Code(s): R73.03 - Prediabetes Status: Acute Assessment and Plan: A1c 6.2. Patient has diet-controlled diabetes mellitus. The patient's blood glucose was reviewed on 05/23 Glucose remains well controlled. Continue AccuCheks covering with sliding scale. Hypoglycemia protocol available as needed. Continue to monitor. (3) Hyperlipidemia associated with type 2 diabetes mellitus: Code(s): E11.69 - Type 2 diabetes mellitus with other specified complication; E78.5 - Hyperlipidemia, unspecified Status: Acute Assessment and Plan: LFTs WNL. Continue home Zocor (4) BPH (benign prostatic hyperplasia): Code(s): N40.0 - Benign prostatic hyperplasia without lower urinary tract symptoms Status: Acute Assessment and Plan: The patient stated that he had a TURP which relieved his symptoms and is no longer on any medications. Follow (5) Hypertension: Code(s): I10 - Essential (primary) hypertension Status: Acute Assessment and Plan: Patient's blood pressure was reviewed on 05/23 Blood pressure remains well controlled. Will continue current medications. Subjective Date/time seen: 05/23/23 12:50 Interval history: 82yo male with CAD, HTN, DM and HLD here for chest pain. No further chest pain. He states the chest pain occurred on exertion and felt very similar to chest pain he had prior to his last heart attack. Feels well today. He is noted to have pedal edema which is chronic for him. Exam Narrative: AF 97.7 144/79 55 16 99% ra Gen - NARD sitting up in chair Chest - CTA bilaterally, nml RR CV - RRR S1/S2. Telemetry showing occasional mild bradycardia. Abd - Soft, NT/ND, Positive BS Ext -trace pedal edema. Negative Homans sign. Neuro - Alert and oriented. Nonfocal exam. Psych - Nml mood and affect Skin - Warm and dry Objective Data Vital Signs Vital Signs: Vital Signs - 24 hr 05/22/23 13:25 05/22/23 13:01 05/22/23 13:06 Temperature Pulse Rate 46 L 46 L Respiratory Rate 14 12 Blood Pressure 117/66 Pulse Oximetry 100 99 98 Oxygen Delivery Room Air 05/22/23 13:17 05/22/23 13:19 05/22/23 14:12 Temperature 97.5 F L Pulse Rate 46 L 51 L 48 L Respiratory Rate 16 18 14 Blood Pressure 103/58 L 135/74 Pulse Oximetry 99 98 99 Oxygen Delivery 05/22/23 14:03 05/22/23 14:03 05/22/23 16:00 Temperature Pulse Rate 54 L Respiratory Rate Blood Pressure Pulse Oximetry Oxygen Delivery Room Air Room Air 05/22/23 16:00 05/22/23 18:00 05/22/23 19:50 Temperature 99.1 F Pulse Rate 58 L 56 L 58 L Respiratory Rate 16 Blood Pressure 140/65 Pulse Oximetry 98 Oxygen Delivery 05/22/23 20:00 05/22/23 22:00 05/23/23 00:00 Temperature 99.6 F Pulse Rate 57 L 59 L 52 L Respiratory Rate 16 Blood Pressure 115/66 Pulse Oximetry 98 Oxygen Delivery 05/23/23 00:00 05/23/23 02:00 05/23/23 04:00 Temperature 99 F Pulse Rate 56 L 50 L 58 L Respiratory Rate 16 Blood Pressure 132/60 Pulse Oximetry 98 Oxygen Delivery 05/23/23 04:00 05/23/23 04:00 05/23/23 06:00 Temperature Pulse Rate 58 L 56 L 54 L Respiratory Rate 16
--- NOTE | 2023-05-23 14:30 | PC.NURSE ---
Pt to computer lab aide via bed. Family at bedside
--- NOTE | 2023-05-23 15:44 | WPDMODSED ---
Moderate Sedation Note-Pt Data Patient Data Diagnosis: NSTEMI Present Complaint: Chest pain Procedure to be performed/Plan: Coronary angiography, left heart cath, +/- PCI Allergies Allergy/AdvReac Type Severity Reaction Status Date / Time iodine Allergy Mild Rash Verified 10/28/19 10:47 Penicillins Allergy Unknown Rash Verified 10/28/19 10:47 Home Medications Medication Instructions Recorded Confirmed Type ezetimibe 10 mg tablet 10 mg PO HS 10/28/19 05/22/23 History fluticasone propionate 50 1 spray intranasal DAILY PRN 10/28/19 05/22/23 History mcg/actuation nasal Congestion spray,suspension losartan 50 mg tablet 100 mg PO DAILY 10/28/19 05/22/23 History nitroglycerin 0.4 mg sublingual 0.4 mg sublingual DIRECTED PRN 10/28/19 05/22/23 History tablet Chest Pain pantoprazole 40 mg tablet,delayed 40 mg PO DAILY 10/28/19 05/22/23 History release simvastatin 20 mg tablet 20 mg PO HS 10/28/19 05/22/23 History acetaminophen 500 mg tablet 1,000 mg PO Q6H PRN Pain (Scale 05/31/20 05/22/23 History Score 1-3) amlodipine 5 mg tablet 5 mg PO DAILY 05/31/20 05/22/23 History aspirin 81 mg tablet,delayed 81 mg PO DAILY 05/31/20 05/22/23 History release (Adult Low Dose Aspirin) loratadine 10 mg tablet (Allergy 10 mg PO HS 05/31/20 05/22/23 History Relief (loratadine)) meloxicam 15 mg tablet 15 mg PO HS 05/31/20 05/22/23 History clopidogrel 75 mg tablet 75 mg PO QAM #30 tabs 06/01/20 05/22/23 Rx hydrochlorothiazide 12.5 mg tablet 12.5 mg PO DAILY 05/22/23 05/22/23 History metoprolol succinate 25 mg 12.5 mg PO DAILY 05/22/23 05/22/23 History tablet,extended release 24 hr Current Medications: Active Medications Acetaminophen (Acetaminophen 500 Mg Tablet) 1,000 mg PO Q6H PRN PRN Reason: Pain (Scale Score 1-3) Amlodipine Besylate (Amlodipine Besylate 5 Mg Tablet) 5 mg PO DAILY AB Last Admin: 05/23/23 08:48 Dose: 5 mg Aspirin (Aspirin 81 Mg Enteric Tablet) 81 mg PO DAILY [facility] Last Admin: 05/23/23 08:53 Dose: 81 mg Clopidogrel Bisulfate (Clopidogrel Bisulfate 75 Mg Tablet) 75 mg PO QAM [facility] Last Admin: 05/23/23 08:45 Dose: 75 mg Dextrose (Dextrose 50% 25 Gm/50 Ml Syringe) 12.5 gm IV PUSH PRN PRN; Protocol PRN Reason: Hypoglycemia Ezetimibe (Ezetimibe 10 Mg Tablet) 10 mg PO HS [facility] Last Admin: 05/22/23 21:24 Dose: 10 mg Fluticasone Propionate (Fluticasone Propionate 0.05% Na Spr 16 Gm Btl (*Bkc)) 1 spray NASAL DAILY PRN PRN Reason: Congestion Glucagon (Glucagon For Inj 1 Mg Vial) 1 mg IM PRN PRN; Protocol PRN Reason: Hypoglycemia Glucose (Glucose Oral Gel 15 Gm Of Glucse In 37.5 Gm Tube) 15 gm PO PRN PRN; Protocol PRN Reason: Hypoglycemia Hydrochlorothiazide (Hydrochlorothiazide 12.5 Mg Capsule) 12.5 mg PO DAILY [facility] Dextrose (Dextrose 5% 1,000 Ml) 1,000 mls @ 100 mls/hr IVPB PRN PRN; Protocol PRN Reason: Hypoglycemia Sodium Chloride (Normal Saline Iv) 1,000 mls @ 125 mls/hr IV CONT .Q8H ONE Stop: 05/23/23 23:41 Insulin Aspart (Insulin Aspart (*Bkc) 100 Units/Ml) 2 - 5 units SUB-Q TIDWM [facility]; Protocol Last Admin: 05/23/23 12:09 Dose: Not Given Lidocaine (Lidocaine 5% Patch) 1 patch TRANSDERM DAILY PRN PRN Reason: Pain Losartan Potassium (Losartan Potassium 50 Mg Tablet) 100 mg PO DAILY [facility] Last Admin: 05/23/23 08:48 Dose: 100 mg Metoprolol Succinate (Metoprolol Succinate Ext Rel 12.5 Mg Tabcr) 12.5 mg PO DAILY [facility] Last Admin: 05/23/23 08:45 Dose: 12.5 mg Morphine Sulfate (Morphine Sulfate (*Crx) 4 Mg/Ml Inj) 4 mg IV PUSH Q2H PRN PRN Reason: Pain Rated 7-10 Nitroglycerin (Nitroglycerin Sl 0.4 Mg Tablet) 0.4 mg SUBLINGUAL Q5MIN PRN PRN Reason: Chest Pain Nitroglycerin (Nitroglycerin Sl 0.4 Mg Tablet) 0.4 mg SUBLINGUAL Q5MIN PRN PRN Reason: Chest Pain Ondansetron HCl (Ondansetron Inj 4 Mg/2 Ml Vial) 4 mg IV PUSH Q4H PRN PRN Reason: Nausea Pantoprazole Sodium (Pantoprazole 40 Mg Tablet) 40 mg PO DAILY AB Last Admin: 05/23/23 08:48 Dose: 40 mg Simvastati
--- NOTE | 2023-05-23 15:46 | WPDCARDPROC ---
Cardiac Cath Procedure Note Date of procedure:: 05/23/23 Performing physician:: CATHETERIZATION LABORATORY REPORT Procedure Date: 05/23/2023 Maintenance Man: Matthew Castro M.D., [facility]? Referring Physician: Matthew Castro M.D. ? Anesthesia: Versed and Fentanyl were ordered and given in my presence at 15:02, procedure ended at 15:37. Supervision of nurse monitored moderate sedation with Versed and Fentanyl was provided for 35 minutes. Total of Versed 2mg and Fentanyl 50mcg were administered by the Land Surveyor Assistant RN Erum Fernandez. Pre-op Diagnosis: Coronary artery disease Post-op Diagnosis: 1. Moderate non-obstructive coronary artery disease 2. Left ventricular end-diastolic pressure of 21mmHg Procedure(s): 1. Moderate sedation. 2. Ultrasound-guided access of the right radial artery 3. Ultrasound-guided access of the right common femoral artery 4. Coronary angiography 5. Left heart cath 6. Angioseal closure of the right common femoral artery Access Site: Right radial artery Right common femoral artery Brief History and Clinical Indications: Patient is an 82 year old male with coronary artery disease s/p prior PCI who is referred for [facility] for NSTEMI. All risks, benefits and alternatives to left heart catheterization with or without percutaneous coronary intervention was discussed at length with the patient. Risk of complications including but not limited to bleeding, infection, arrhythmia, stroke, worsening kidney function, blood loss, groin hematoma, limb loss, emergency coronary artery bypass grafting, and even were discussed with the patient and all questions were answered. The patient understood and wished to proceed. Time out called, patient name, date of , medical record number, allergies, procedure performed, identify Maintenance Man, patient and staff member concurred with accurate data, procedure carried on. Findings: LEFT HEART CATHETERIZATION FINDINGS: 1. Left main: The left main coronary artery is widely patent without any significant obstructive disease. 2. Left anterior descending: Large caliber vessel. Widely patent stent in the proximal LAD. Luminal irregularities in the LAD. The first diagonal branch is a small-medium caliber vessel with mild diffuse disease. 3. Left circumflex: The left circumflex is a large caliber vessel. The left circumflex has mild diffuse disease. OM-1 has mild diffuse disease. Widely patent stent in the proximal portion of OM-2. Remainder of OM-2 has mild diffuse disease. No significant obstructive angiographic disease in LCX/OM system. 4. Right coronary artery: The right coronary artery is a large caliber vessel. The RCA is the dominant artery. There is visible stent material in the proximal and mid RCA. The proximal and mid RCA have mild diffuse disease. The distal RCA has moderate disease of approximately 50%. The RPDA and RPLV branches have mild diffuse disease. 5. Left ventricle: A. End-diastolic pressure 21 mmHg. B. LV gram deferred. C. No significant gradient across aortic valve on catheter pullback. Description of Procedure: Informed consent signed and placed in the chart. Patient transferred to veterinary laboratory diagnostician room. Prepped and draped in usual sterile fashion. 2% lidocaine injected subcutaneously in right wrist area. 22-gauge venipuncture catheter used to access the right radial artery under ultrasound guidance. 6-FR slender sheath placed in right radial artery. Nitroglycerine and Verapamil were given intraarterial through the sheath. Versacore wire advanced under fluoroscopy 5F Tig 4 diagnostic catheter engaged Right Coronary Artery Multiple orthogonal angiogram obtained and reviewed. Unable to engage the left main with 5F Tig 4 or 5F FL 4 due to tortuosity. Therefore, femoral access was pursued. 2% lidocaine in right groin area. Micropuncture needle used to access right common femoral artery with Seldinger technique under fluoroscopic guidance and ultrasound guidance.
--- NOTE | 2023-05-23 16:01 | PM.PNCARD ---
Progress Note: A&P Assessment and Plan (1) NSTEMI (non-ST elevated myocardial infarction): Code(s): I21.4 - Non-ST elevation (NSTEMI) myocardial infarction Status: Acute (2) Chest pain: Code(s): R07.9 - Chest pain, unspecified Status: Acute Plan EKG x 2 without ischemic changes. Troponins of <0.012, 0.020, 0.066, 0.097, 0.065. Peak troponin of 0.097. Given positive troponins, recommended cardiac cath. Procedure details, including risks vs benefits, alternative management options, post-cath care discussed with the patient. Patient agreeable to proceed. Cardiac cath 05/23 showed moderate non-obstructive coronary artery disease. Angiographic findings are grossly unchanged compared to prior cath from 2019. Post-cath orders placed. Anticipate discharge tomorrow morning if no issues overnight. Continue home meds of ASA, Plavix, statin. Recommendations/plan discussed with Hospitalist, Dr. Flynn. Subjective Date/time seen: 05/23/23 16:01 Interval history: Reason for visit: Chest pain, NSTEMI HPI: We are consulted for chest pain. This is an 82-year-old male with coronary artery disease s/p prior PCI, hypertension who presented with chest pain. Patient states he was out planting in his yard this morning. Was sweating from the heat but otherwise felt okay. After he finished working, he was putting his stuff away when he felt bad overall. Then developed pain on the sides of both his arms, chest pain, back pain. Patient states he took NTG and ASA x 3. Had some improvement, but recurrence in symptoms. Took another NTG again with improvement but then recurrence in symptoms. Patient then took a third NTG. Patient states his symptoms completely resolved around 1PM or shortly beforehand. His symptoms began around 10AM or so. Patient reports that he had similar symptoms back in 2019 when he was admitted here for chest pain. Cardiac catheterization done by Dr. Brenner at that time showed moderate non-obstructive coronary artery disease. Patient states that prior to this morning, the last time he had pain was back in 2019 at the time of the cath. He has otherwise done well since then. Takes ASA and Plavix daily at home. He feels completely fine now. Initial troponin negative. Initial EKG with sinus bradycardia with sinus arrhythmia. No ischemic changes. Repeat EKG without significant changes. Date of service 05/23/2023: Remains chest pain free. No other symptoms. Cardiac cath today as troponins became positive. Review of Systems Review of Systems: All systems reviewed & are unremarkable except as noted in HPI and below (HPI) Exam Const: General: comfortable and no acute distress HENMT: Mouth: Yes moist mucous membranes Eyes: General: appearance normal, both eyes and all related structures Sclera: sclerae normal Neck: Neck: supple Resp: Effort & Inspection: normal respiratory effort Auscultation: clear to auscultation bilaterally Cardio: Rate: regular rate Rhythm: regular rhythm Heart sounds: no murmurs GI: GI Palp: Yes Soft to palpation and No Tenderness to palpation present (GI) Skin: General skin exam: normal color Neuro: Speech: normal speech Extrem: General: normal to inspection Psych: Mental Status: mental status grossly normal Affect: normal affect Objective Data Vital Signs Vital Signs: Vital Signs - 24 hr 05/22/23 18:00 05/22/23 19:50 05/22/23 20:00 Temperature 37.3 C Pulse Rate 56 L 58 L 57 L Respiratory Rate 16 Blood Pressure 140/65 Pulse Oximetry 98 Oxygen Delivery 05/22/23 22:00 05/23/23 00:00 05/23/23 00:00 Temperature 37.6 C Pulse Rate 59 L 52 L 56 L Respiratory Rate 16 Blood Pressure 115/66 Pulse Oximetry 98 Oxygen Delivery 05/23/23 02:00 05/23/23 04:00 05/23/23 04:00 Temperature 37.2 C Pulse Rate 50 L 58 L 58 L Respiratory Rate 16 16 Blood Pressure 132/60 Pulse Oximetry 98 98 Oxygen Delivery Room Air 05/23/23 04:00
--- NOTE | 2023-05-23 18:30 | SUR.PHASEII ---
TOOK OVER CARE OF PT. FROM KRISTIN MCCARTHY RN AT 1725. ATE 100% OF SUPPER. EMPTY TR BAND REMOVED FROM R. RADIAL ARTERY PUNCTURE SITE AT 1800 AND SITE DRESSED W/ FOLDED 2X2 AND TEGADERM. SITE WITHOUT BLEEDING, HEMATOMA. IS SOFT AND NONTENDER. R. HAND SENSATION AND MOVEMENT WNL. ARMBOARD REMAINS IN PLACE ON R. LOWER ARM/WRIST TO PREVENT FLEXION OF WRIST. REVIEWED CARE AND MONITORING OF R. WRIST AND R. GROIN PUNCTURES WITH PT. AND . ANGIOSEAL PAMPHLET GIVEN TO PT'S TO KEEP AFTER REVIEWING WITH THEM. VSS. BEDREST X 2 HOURS COMPLETE. CONDITION UPDATE/REPORT UPDATE CALLED TO EKATERINA Pearson RN IN IMU AT THIS TIME. WILL RETURN TO IMU 209 VIA BED ON TELE MONITOR.
--- NOTE | 2023-05-23 18:45 | PC.NURSE ---
Pt returned from nursery laborer via bed. Family at bedside. No issues noted
[2023-05-23] MEDS: SODIUM CHLORIDE 0.9% IV 1,000 ML 125 ML IV CONT (18:50)
[2023-05-23 19:53] LABS: Glucose Point of Care 229 mg/dl (65-105)
[2023-05-23] MEDS: EZETIMIBE 10 MG TABLET PO (20:38)
[2023-05-23] MEDS: SIMVASTATIN 20 MG TABLET PO (20:38)
[2023-05-24] VITALS (9 sets, daily range): BP systolic 125–134; BP diastolic 56; PULSE 55–70; RESP 16–20; TEMP 36.4–36.8; O2SAT 99
[2023-05-24 05:06] LABS: Anion Gap 4 mmol/L (8-16); Blood Urea Nitrogen 18 mg/dL (9-20); Calcium 8.4 mg/dL (8.4-10.2); Carbon Dioxide 25 mmol/L (22-30); Chloride 103 mmol/L (98-107); Estimated CRCL calculation 60 ml/min; Estimated Glomerular Filt Rate > 60; Glucose 183 mg/dL (65-110); Potassium 3.7 mmol/L (3.4-5.0); Sodium 132 mmol/L (137-145)
[2023-05-24 07:47] LABS: Glucose Point of Care 172 mg/dl (65-105)
[2023-05-24] MEDS: METOPROLOL SUCCINATE EXT REL 12.5 MG TABCR PO (09:00)
[2023-05-24] MEDS: PANTOPRAZOLE 40 MG TABLET PO (09:01)
[2023-05-24] MEDS: LOSARTAN POTASSIUM 50 MG TABLET 100 MG PO (09:01)
[2023-05-24] MEDS: ASPIRIN 81 MG ENTERIC TABLET PO (09:02)
[2023-05-24] MEDS: hydroCHLOROthiazide 12.5 MG CAPSULE PO (09:02)
[2023-05-24] MEDS: amLODIPine BESYLATE 5 MG TABLET PO (09:02)
[2023-05-24] MEDS: CLOPIDOGREL BISULFATE 75 MG TABLET PO (09:02)
--- NOTE | 2023-05-24 09:06 | PM.DS ---
DS: Admitting Diagnosis Discharge Date 05/24/23 Admitting Diagnosis Chest pain DS: Discharge Diagnosis Discharge Diagnosis (1) Chest pain: Code(s): R07.9 - Chest pain, unspecified Status: Acute (2) Pre-diabetes: Code(s): R73.03 - Prediabetes Status: Acute (3) Hyperlipidemia associated with type 2 diabetes mellitus: Code(s): E11.69 - Type 2 diabetes mellitus with other specified complication; E78.5 - Hyperlipidemia, unspecified Status: Acute (4) BPH (benign prostatic hyperplasia): Code(s): N40.0 - Benign prostatic hyperplasia without lower urinary tract symptoms Status: Acute (5) Hypertension: Code(s): I10 - Essential (primary) hypertension Status: Acute DS: Summary Hospital Course Reason for hospitalization: 82yo male with CAD, HTN, DM and HLD here for chest pain. Please see H&P for details. Hospital Course: Patient presents with chest pain on exertion that felt very similar to prior ischemic chest pain.? Chest x-ray was clear. Troponins peaked at 0.097.? EKG showed sinus bradycardia with sinus arrhythmia and first-degree AV block but overall no significant change from prior.? Patient was already on Plavix, aspirin, Toprol, Cozaar and Zocor which was continued. The patient was given subcu Lovenox and admitted to the IMU.? Cardiology was consulted.?A1c 6.2.? Patient has diet-controlled diabetes mellitus. The patient's blood glucose was monitored with AccuCheks covering with sliding scale.? Hypoglycemia protocol was available as needed.?LFTs WNL so we continued his home Zocor. He underwent left heart catheterization 05/23/23 showin. Left main: The left main coronary artery is widely patent without any significant obstructive disease. 2. Left anterior descending: Large caliber vessel. Widely patent stent in the proximal LAD. Luminal irregularities in the LAD. The first diagonal branch is a small-medium caliber vessel with mild diffuse disease. 3. Left circumflex: The left circumflex is a large caliber vessel. The left circumflex has mild diffuse disease. OM-1 has mild diffuse disease. Widely patent stent in the proximal portion of OM-2. Remainder of OM-2 has mild diffuse disease. No significant obstructive angiographic disease in LCX/OM system.? 4. Right coronary artery: The right coronary artery is a large caliber vessel. The RCA is the dominant artery. There is visible stent material in the proximal and mid RCA. The proximal and mid RCA have mild diffuse disease. The distal RCA has moderate disease of approximately 50%. The RPDA and RPLV branches have mild diffuse disease. 5. Left ventricle: A. End-diastolic pressure 21 mmHg. B. LV gram deferred. C. No significant gradient across aortic valve on catheter pullback. Patient tolerated the procedure well. He was held overnight. No obvious post-procedure complications. He overall did well and was able to be discharged home on 05/24/23. Status at Discharge Cognitive/behavioral status at discharge: stable Time Spent with Patient Time attestation: Total time spent providing and/or coordinating discharge services: 35 minutes Time spent: Greater than 30 minutes Exam Narrative: AF 97.6 134/56 58 16 99% ra Gen - NARD sitting up in chair Chest - CTA bilaterally, nml RR CV - RRR S1/S2. Telemetry showing no significant dysrhythmias Abd - Soft, NT/ND, Positive BS Ext -trace pedal edema. No hematoma to the right wrist or right femoral sites. Normal perfusion Psych - Nml mood and affect Skin - Warm and dry DS: Data Data Completed and Pending Labs on day of discharge: Labs from last 24 hours 05/24/23 05/24/23 05/23/23 07:43 04:38 19:42 Sodium 132 L Potassium 3.7 Chloride 103 Carbon Dioxide 25 Anion Gap 4 L BUN 18 Creatinine 1.00 Estim Creat Clear Calc 60 Estimated GFR > 60 Glucose 183 H POC Capillary Glucose 172 H 229 H Calcium 8.4 Troponin I 05/23/23
--- NOTE | 2023-05-24 09:08 | PM.PNCARD ---
Progress Note: A&P Assessment and Plan (1) NSTEMI (non-ST elevated myocardial infarction): Code(s): I21.4 - Non-ST elevation (NSTEMI) myocardial infarction Status: Acute Assessment and Plan: Admitted with ACS, non STEMI. Cardiac catheterization showed moderate RCA disease, basically no change. --Continue aspirin, Plavix, metoprolol ezetimibe, simvastatin --reviewed care of radial artery and femoral artery catheterization sites --okay for discharge; will arrange for close follow-up in the office (2) Coronary artery disease: Code(s): I25.10 - Atherosclerotic heart disease of alutiiq coronary artery without angina pectoris Status: Acute Assessment and Plan: History of CAD, continue dual anti-platelet therapy, statins (3) Hypertension: Code(s): I10 - Essential (primary) hypertension Status: Acute Assessment and Plan: BP at goal -- continue metoprolol, amlodipine, HCTZ, losartan (4) Bradycardia: Code(s): R00.1 - Bradycardia, unspecified Status: Acute Assessment and Plan: Mild bradycardia, asymptomatic. --continue metoprolol Subjective Date/time seen: 05/24/23 09:08 Interval history: Follow-up for ACS, and STEMI. Patient admitted with chest discomfort and troponins which increased to 0.065. Cardiac catheterization on 05/23/2023 showed moderate CAD of the right coronary artery, no change compared to 2019. Medical therapy recommended. Date of service 05/24/2023: Patient is doing well, up and about in his room, no more chest tightness or shortness of breath. Telemetry: NSR, mild bradycardia usually 50s and 60s, occasionally dropping to 40s Review of Systems Review of Systems: No chest tightness, shortness of breath, dizziness, bleeding, abdominal pain Exam Const: General: cooperative, healthy appearing and comfortable; No confusion Orientation/consciousness: oriented to person, patient oriented x3 and No confusion HENMT: Mouth: Yes moist mucous membranes Eyes: General: appearance normal, both eyes and all related structures Neck: Neck: supple Resp: Effort & Inspection: normal respiratory effort Auscultation: clear to auscultation bilaterally Cardio: Rate: regular rate Rhythm: regular rhythm Heart sounds: Murmur heart sound present (2/6 KANDIS left sternal border) Other: And right radial pulses good, fingers warm. Right femoral pulse present, barely palpable right dorsalis pedis, posterior tibial intact, no hematoma. GI: Inspection: normal to inspection GI Palp: No abdominal tenderness Skin: General skin exam: normal color and no rashes or lesions noted Neuro: General: oriented to person, patient oriented x3 and No confusion Extrem: Right lower extremity: no edema Left lower extremity: no edema Psych: Appearance: grossly normal Mental Status: mental status grossly normal Objective Data Vital Signs Vital Signs: Vital Signs - 24 hr 05/23/23 10:00 05/23/23 12:00 05/23/23 12:00 Temperature 97.7 F Pulse Rate 48 L 52 L 55 L Respiratory Rate 16 Blood Pressure 144/79 H Pulse Oximetry 99 Oxygen Delivery Fraction of Inspired Oxygen 05/23/23 12:00 05/23/23 14:00 05/23/23 15:19 Temperature 98.2 F Pulse Rate 69 72 Respiratory Rate 20 Blood Pressure 112/41 L Pulse Oximetry 99 Oxygen Delivery Room Air Fraction of Inspired Oxygen 05/23/23 16:00 05/23/23 16:15 05/23/23 16:30 Temperature Pulse Rate 54 L 56 L 55 L Respiratory Rate 14 15 14 Blood Pressure 122/73 122/67 121/69 Pulse Oximetry 99 99 97 Oxygen Delivery Room Air Room Air Room Air Fraction of Inspired Oxygen 05/23/23 16:45 05/23/23 17:00 05/23/23 17:15 Temperature Pulse Rate 63 65 72 Respiratory Rate 16 16 16 Blood Pressure 133/71 131/73 133/74 Pulse Oximetry 98 95 97 Oxygen Delivery Room Air Room Air Room Air Fraction of Inspired Oxygen 05/23/23 18:42 05/23/23 17:30 05/23/23 18:00
== END 2023-05-24 11:05 | disposition home or self-care (01) ==
LOC: ANHED 13:17 → ANHIMU 05-23 13:48
PROVIDERS: Emergency Medicine; Internal Medicine; Internal Medicine Cardiovascular Disease; Nurse Practitioner; Admitting Provider Family Medicine; Emergency Provider General Practice; Visit Provider Internal Medicine
PROC: 4A023N7 Measurement of Cardiac Sampling and Pressure, Left Heart, Percutaneous Approach (ICD-10-PCS; CPT 93452; principal; 2023-05-23 14:00)
PROC: (CPT 36140; 2023-05-23 14:00)
DX: I21.4 Non-ST elevation (NSTEMI) myocardial infarction (principal); I25.10 Atherosclerotic heart disease of native coronary artery without angina pectoris; Z95.5 Presence of coronary angioplasty implant and graft; D64.9 Anemia, unspecified; I44.0 Atrioventricular block, first degree; N40.0 Benign prostatic hyperplasia without lower urinary tract symptoms; E78.5 Hyperlipidemia, unspecified; E11.69 Type 2 diabetes mellitus with other specified complication; I10 Essential (primary) hypertension; Z79.51 Long term (current) use of inhaled steroids; Z79.1 Long term (current) use of non-steroidal anti-inflammatories (NSAID); Z79.01 Long term (current) use of anticoagulants; Z79.82 Long term (current) use of aspirin; Z79.899 Other long term (current) drug therapy; Z87.891 Personal history of nicotine dependence; Z82.49 Family history of ischemic heart disease and other diseases of the circulatory system
CPT/HCPCS: 36140; 36415; 71046; 80048; 80053; 82948; 83036; 83605; 83690; 83735; 84443; 84484; 85025; 85610; 85730; 93005; 93458; 96372; 96374; 99285; A9270; C1760; C1769; C1887; C1894; G0269; G0378; J1200; J1644; J1650; J2250; J2305; J2920; J2930; J3010; J7030; J7040

== ENCOUNTER 2023-09-26 09:13 | Emergency (ER) | payer MEDICARE, OTHER, SELFPAY ==
--- NOTE | 2023-09-26 09:20 | ED.SKABFB ---
HPI - Skin/Abscess/Foreign Bdy General Chief complaint: Animal Bite Stated complaint: spider bite Time Seen by Provider: 09/26/23 09:28 Source: patient, RN notes reviewed and old records reviewed Mode of arrival: ambulatory Limitations: no limitations History of Present Illness HPI narrative: 83-year-old male presents to the [facility] with concerns that he was bit by a spider. Erythema, mild swelling, fluctuance center yellow vesicular area noted to the left upper inner arm. States that occurred yesterday and keeps getting bigger. Denies any pain in the joints. Full range of motion of the shoulder and elbow. Positive radial pulse. Sensation intact in all 5 fingers. Has been washing it with soapy water Related Data Home Medications Medication Instructions Recorded Confirmed ezetimibe 10 mg tablet 10 mg PO HS 10/28/19 09/26/23 fluticasone propionate 50 1 spray intranasal DAILY PRN 10/28/19 09/26/23 mcg/actuation nasal Congestion spray,suspension losartan 50 mg tablet 100 mg PO DAILY 10/28/19 09/26/23 nitroglycerin 0.4 mg sublingual 0.4 mg sublingual DIRECTED PRN 10/28/19 09/26/23 tablet Chest Pain pantoprazole 40 mg tablet,delayed 40 mg PO DAILY 10/28/19 09/26/23 release simvastatin 20 mg tablet 20 mg PO HS 10/28/19 09/26/23 acetaminophen 500 mg tablet 1,000 mg PO Q6H PRN Pain (Scale 05/31/20 09/26/23 Score 1-3) amlodipine 5 mg tablet 5 mg PO DAILY 05/31/20 09/26/23 aspirin 81 mg tablet,delayed 81 mg PO DAILY 05/31/20 09/26/23 release (Adult Low Dose Aspirin) loratadine 10 mg tablet (Allergy 10 mg PO HS 05/31/20 09/26/23 Relief (loratadine)) meloxicam 15 mg tablet 15 mg PO HS 05/31/20 09/26/23 hydrochlorothiazide 12.5 mg tablet 12.5 mg PO DAILY 05/22/23 09/26/23 metoprolol succinate 25 mg 12.5 mg PO DAILY 05/22/23 09/26/23 tablet,extended release 24 hr Allergies Allergy/AdvReac Type Severity Reaction Status Date / Time iodine Allergy Mild Rash Verified 09/26/23 09:35 Penicillins Allergy Unknown Rash Verified 09/26/23 09:35 Review of Systems Review of Systems: All systems reviewed & are unremarkable except as noted in HPI and below Constitutional: Constitutional: Reports no additional constitutional complaints Eyes: Eyes: Reports no additional eye complaints ENT: Reports system reviewed and no additional complaints, except as documented Cardiovascular: Cardiovascular: Reports no additional cardiovascular complaints, Denies chest pain and Denies dyspnea Respiratory: Respiratory: Reports no additional respiratory complaints, Denies chest congestion, Denies cough and Denies dyspnea Gastrointestinal: Gastrointestinal: Reports no additional gastrointestinal complaints, Denies abdominal pain, Denies nausea and Denies vomiting Musculoskeletal: Musculoskeletal: Reports no additional musculoskeletal complaints Integumentary/Breasts: Skin/Breast: Reports as per HPI Neurologic: Reports system reviewed and no additional complaints, except as documented Psychiatric: Psychiatric: Reports no additional psychiatric complaints Allergic/Immunologic: Allergic/Immunologic: Reports no additional allergic/immunologic complaints PMFSH Past Medical History Medical History BPH (benign prostatic hyperplasia) Coronary artery disease Hyperlipidemia associated with type 2 diabetes mellitus Hypertension Pre-diabetes Surgical History Surgical History H/O inguinal hernia repair H/O rotator cuff surgery History of cataract surgery History of coronary artery stent placement 3 stent at mo bap with one stent at one time and two at the next time revascularization procedure in the LAD, OM and proximal RCA History of percutaneous coronary intervention S/P tonsillectomy S/P TURP Family History Family History Father Acute myocardial infarction Heart
[2023-09-26 09:28] VITALS: BP 132/69; PULSE 56; RESP 16; TEMP 36.4; O2SAT 100
== END 2023-09-26 09:58 | disposition home or self-care (01) ==
PROVIDERS: Emergency Provider Nurse Practitioner; PCP Hospitalist
DX: S40.862A Insect bite (nonvenomous) of left upper arm, initial encounter (principal); L08.9 Local infection of the skin and subcutaneous tissue, unspecified; W57.XXXA Bitten or stung by nonvenomous insect and other nonvenomous arthropods, initial encounter; Z87.891 Personal history of nicotine dependence; N40.0 Benign prostatic hyperplasia without lower urinary tract symptoms; I25.10 Atherosclerotic heart disease of native coronary artery without angina pectoris; E78.5 Hyperlipidemia, unspecified; E11.9 Type 2 diabetes mellitus without complications; Z95.5 Presence of coronary angioplasty implant and graft; Z79.82 Long term (current) use of aspirin
CPT/HCPCS: 87070; 87205; 99213; G0463